=== PATIENT | male | born 1955 | race Caucasian/White ===

== ENCOUNTER 2018-08-22 08:51 | Day surgery (SDC) | payer OTHER ==
[~2018-08-22 08:51] MED LIST: AMLODIPINE BESY10 MG PO
[2018-08-22] MEDS ORDERED: PERCOCET 5-3251 EACH PO (15:30)
[2018-08-22] MEDS ORDERED: POLY119PG PO (15:31)
[2018-08-22] MEDS ORDERED: NEURONTIN300 MG PO (15:31)
== END 2018-08-22 18:30 | disposition home or self-care (01) ==
LOC: CIR.AMB 08:51
DX: K40.20 Bilateral inguinal hernia, without obstruction or gangrene, not specified as recurrent (principal)